=== PATIENT | female | born 1995 | race Caucasian/White ===

== ENCOUNTER 2018-04-29 09:54 | Emergency (ER) | payer OTHER ==
--- NOTE | 2018-04-29 09:58 | ED PDOC ---
Arrival/HPI - General Historian: Patient <Roz Terryim P - Last Filed: 04/29/18 12:04> <Ilir Lewis - Last Filed: 04/29/18 16:10> - General Time Seen by Provider: 04/29/18 09:58 - History of Present Illness Narrative History of Present Illness (Text): 04/29/18 09:58 This 23 yo female who denies pmh, presents to this ED c/o pelvic pain since morning. Patient admits similar pelvic pain associated with menstruation in the past. Patient stated her menstrual period started this morning. Patient denies sob, cp, n/v, urinary frequency (Terry,Nahim P) Past Medical History - Provider Review Nursing Documentation Reviewed: Yes <Terry,Nahim P - Last Filed: 04/29/18 12:04> Family/Social History - Physician Review Nursing Documentation Reviewed: Yes Family/Social History: Other <Terry,Nahim P - Last Filed: 04/29/18 12:04> Allergies/Home Meds <Terry,Nahim P - Last Filed: 04/29/18 12:04> <Ilir Lewis - Last Filed: 04/29/18 16:10> Allergies/Adverse Reactions: Allergies No Known Allergies Allergy (Verified 04/29/18 10:06) Review of Systems - Review of Systems Constitutional: Normal. absent: Fatigue, Weight Change, Fevers, Night Sweats Eyes: Normal ENT: Normal Respiratory: Normal Cardiovascular: Normal Gastrointestinal: Other (pelvic cramping) Genitourinary Female: Normal Musculoskeletal: Normal Skin: Normal Neurological: Normal Endocrine: Normal Hemo/Lymphatic: Normal Psychiatric: Normal <Terry,Nahim P - Last Filed: 04/29/18 12:04> Physical Exam Temperature: Afebrile Blood Pressure: Normal Pulse: Regular Respiratory Rate: Normal Appearance: Positive for: Well-Appearing, Non-Toxic, Comfortable Pain Distress: None Mental Status: Positive for: Alert and Oriented X 3 - Systems Exam Head: Present: Atraumatic, Normocephalic Pupils: Present: PERRL Extroacular Muscles: Present: EOMI Conjunctiva: Present: Normal Mouth: Present: Moist Mucous Membranes Neck: Present: Normal Range of Motion Respiratory/Chest: Present: Clear to Auscultation, Good Air Exchange. No: Respiratory Distress, Accessory Muscle Use Cardiovascular: Present: Regular Rate and Rhythm, Normal S1, S2. No: Murmurs Abdomen: No: Tenderness, Distention, Peritoneal Signs, Rebound, Guarding Back: Present: Normal Inspection. No: CVA Tenderness Upper Extremity: Present: Normal Inspection, Normal ROM, NORMAL PULSES. No: Cyanosis, Edema Lower Extremity: Present: Normal Inspection, NORMAL PULSES, Normal ROM. No: Edema Neurological: Present: GCS=15, CN II-XII Intact, Speech Normal, Motor Func Grossly Intact, Normal Sensory Function, Normal Cerebellar Funct, Gait Normal, Memory Normal Skin: Present: Warm, Dry, Normal Color. No: Rashes Psychiatric: Present: Alert, Oriented x 3, Normal Insight, Normal Concentration <Megan Terry P - Last Filed: 04/29/18 12:04> Vital Signs Temp Pulse Resp BP Pulse Ox 04/29/18 12:30 98.4 F 80 18 125/63 99 04/29/18 11:51 79 18 125/69 99 04/29/18 10:04 98.4 F 87 18 127/76 99 Medical Decision Making Re-evaluation Time: 12:05 Reassessment Condition: Re-examined, Improved - Lab Interpretations I have reviewed the lab results: Yes Interpretation: Abnormal lab values (cystitis) <Megan Terry - Last Filed: 04/29/18 12:04> <Ilir Lewis - Last Filed: 04/29/18 16:10> ED Course and Treatment: 04/29/18 12:05 Re-evaluation. Patient feels better. Discussed results and plan with patient who expresses understanding. All questions answered and there is agreement with the plan to discharge home with instructions. Patient stable for discharge. Return if symptoms persist or worsen. (Roz Terryim P) - Lab Interpretations Lab Results: 04/29/18 10:23 04/29/18 10:23 Lab Results 04/29/18 11:23: Urine Color Red, Urine Appearance Bloody, Urine pH 7.5, Ur Specific [place] 1.020, Urine Protein >=300 H, Urine Glucose (UA) 100 H, Urine Ketones Trace H, Urine Blood Large H, Urine Nitrate Positive H, Urine Bilirubin Small H, Urine Urobilinogen 1.0 H, Ur Leukocyte Esterase Small H, Urine RBC Tntc , Urine WBC TEST NOT PERFORMED, Urine HCG, Qual Negative 04/29/18 10:23: Sodium 143, Potassium 3.9, Chloride 105, Carbon Dioxide 25, Anion Gap 18, BUN 13, Creatinine 0.6 L, Est GFR ( Amer) > 60, Est GFR ( Non-Af Amer) > 60, Random Glucose 96, Calcium 9.2, Total Bilirubin 0.6, AST 26, ALT 23, Alkaline Phosphatase 46, Total Protein 8.4 H, Albumin 4.7, Globulin 3.6 , Albumin/Globulin Ratio 1.3 04/29/18 10:23: WBC 6.9, RBC 4.17, Hgb 12.8, Hct 38.1, MCV 91.4, MCH 30.7, MCHC 33.6, RDW 13.3, Plt Count 339, MPV 9.3, Gran % 66.8, Lymph % (Auto) 23.0, [place] % (Auto) 9.2 H, Eos % (Auto) 0.6 L, Baso % (Auto) 0.4, Gran # 4.58, Lymph # ( Auto) 1.6, [place] # (Auto) 0.6, Eos # (Auto) 0.0, Baso # (Auto) 0.03 - Medication Orders Current Medication Orders: Discontinued Medications Cephalexin Monohydrate (Keflex) 500 mg PO STAT STA PRN Reason: Protocol Stop: 04/29/18 12:04 Last Admin: 04/29/18 12:22 Dose: 500 mg Sodium Chloride (Sodium Chloride 0.9%) 1,000 mls @ 999 mls/hr IV .Q1H1M STA Stop: 04/29/18 11:20 Last Admin: 04/29/18 10:20 Dose: 999 mls/hr eMAR Start Stop Document 04/29/18 10:20 LA (Rec: 04/29/18 10:49 LAMAR [id number]) Intravenous Solution Start Date 04/29/18 Start Time 10:20 End Date 04/29/18 End time 11:21 Total Infusion Time 61 Ketorolac Tromethamine (Toradol) 30 mg IVP STAT STA Stop: 04/29/18 11:32 Last Admin: 04/29/18 11:42 Dose: 30 mg MAR Pain Assessment Document 04/29/18 11:42 LA (Rec: 04/29/18 11:43 LAMAR [id number]) Pain Reassessment Is this a pain reassessment? No Sleep Is patient sleeping during reassessment? No Presence of Pain Presence of Pain Yes Pain Scale Used Pain Scale Used Numeric Location Pain Location Body Site Abdomen Generalized Description Description Cramping Intensity of Pain at present 10 IVP Administration Document 04/29/18 11:42 LAMAR (Rec: 04/29/18 11:43 LA [id number]) Charges for Administration # of IVP Administrations 1 Phenazopyridine HCl (Pyridium) 200 mg PO STAT STA Stop: 04/29/18 12:04 Last Admin: 04/29/18 12:22 Dose: 200 mg - PA / JAVA USER INTERFACE DEVELOPER / Resident Statement / has reviewed & agrees with the documentation as recorded. <Ilir Lewis - Last Filed: 04/29/18 16:10> Disposition/Present on Arrival - Present on Arrival Any Indicators Present on Arrival: No History of DVT/PE: No History of Uncontrolled Diabetes: No Urinary Catheter: No History of Decub. Ulcer: No - Disposition Have Diagnosis and Disposition been Completed?: Yes Disposition Time: 12:06 Patient Plan: Discharge <Megan Terry - Last Filed: 04/29/18 12:04> <Ilir Lewis - Last Filed: 04/29/18 16:10> - Disposition Diagnosis: Acute cystitis Disposition: HOME/ ROUTINE Condition: GOOD Discharge Instructions (ExitCare): Acute Cystitis (DC) Additional Instructions: Call private doctor for follow up visit in 1-2 days. Take medication as instructed with food. Return to emergency if symptoms worsen. Prescriptions: Cephalexin [cephalexin] 500 mg PO BID #14 cap Famotidine [Pepcid] 40 mg PO DAILY #10 tablet Ibuprofen [Motrin] 400 mg PO Q8H PRN #20 tab PRN Reason: Pain, Severe (8-10) Phenazopyridine HCl [Pyridium] 200 mg PO TID #9 tablet Referrals: [facility] [Outside] - Follow up with primary [facility] [Outside] - Follow up with [facility] [Outside] - Follow up with primary Forms: WORK NOTE
[2018-04-29 10:06] VITALS: RESP 18; TEMP 98.4; O2SAT 99; BMI 17.5
[2018-04-29] MEDS ORDERED: Sodium Chloride 0.9% 1,000 ML IV STA (10:20)
[2018-04-29 10:42] LABS: BASO # 0.03 K/mm3 (0.0-2.0); BASO % 0.4 % (0.0-3.0); EOS % 0.6 % (1.5-5.0); GRAN # 4.58 (1.4-6.5); GRAN % 66.8 % (50.0-68.0); HEMOGLOBIN 12.8 g/dL (12.0-16.0); LYMPH # 1.6 (1.2-3.4); MEAN CELL VOLUME 91.4 fl (80.0-105.0); MEAN CORPUSCULAR HEMOGLOBIN 30.7 pg (25.0-35.0); MEAN CORPUSCULAR HGB CONC 33.6 g/dl (31.0-37.0); MEAN PLATELET VOLUME 9.3 fl (7.0-11.0); MONO # 0.6 (0.1-0.6); MONO % 9.2 % (1.0-6.0); RBC 4.17 10^6/uL (3.5-6.1); RED CELL DISTRIBUTION WIDTH 13.3 % (11.5-14.5); WHITE BLOOD COUNT 6.9 10^3/ul (4.5-11.0)
[2018-04-29 10:48] LABS: ALB/GLOB RATIO 1.3 (1.1-1.8); ALBUMIN 4.7 g/dL (3.0-4.8); ALT/SGPT 23 U/L (7-56); AST/SGOT 26 U/L (14-36); BLOOD UREA NITROGEN 13 mg/dL (7-21); CALCIUM 9.2 mg/dL (8.4-10.5); GFR AFRICAN-AMERICAN > 60; GFR NON-AFRICAN AMERICAN > 60
[2018-04-29 11:33] LABS: PH,URINE 7.5 (4.7-8.0); URINE BILIRUBIN SMALL (NEGATIVE); URINE BLOOD LARGE (NEGATIVE); URINE GLUCOSE (UA) 100 mg/dL (NEGATIVE); URINE LEUKOCYTE ESTERASE SMALL Leu/uL (NEGATIVE); URINE PROTEIN >=300 mg/dL (<30 mg/dL)
[2018-04-29 11:36] LABS: URINE APPEARANCE BLOODY (CLEAR); URINE COLOR RED (YELLOW)
[2018-04-29 11:53] LABS: URINE RBC TNTC /hpf (0-2)
[2018-04-29 11:54] LABS: HCG,QUALITATIVE URINE NEGATIVE (NEGATIVE)
[2018-04-29 12:32] VITALS: BP 125/63; PULSE 80
== END 2018-04-29 12:30 | disposition home or self-care (01) ==
LOC: ED 09:54
DX: N30.00 Acute cystitis without hematuria (principal)
CPT/HCPCS: 80053; 81001; 84703; 85025; 87086; 96361; 96374; 99284; J1885; J7030

== ENCOUNTER 2018-12-24 12:57 | Emergency (ER) | payer SELFPAY ==
[2018-12-24 12:58] VITALS: BMI 16.9
[2018-12-24 13:13] VITALS: RESP 18
--- NOTE | 2018-12-24 14:09 | ED PDOC ---
Arrival/HPI - General Chief Complaint: Abdominal Pain Time Seen by Provider: 12/24/18 13:17 Historian: Patient - History of Present Illness Narrative History of Present Illness (Text): 12/24/18 14:06 23 year old female, primarily Kyrgyz speaking translation through nurse, with no significant past medical history presents to the emergency department, 4 months , complaining of lower abdominal pain, since last night. Patient states she has been taking vitamins and had an ultrasound on 12/17/18 and has another scheduled for 12/30/18. She denies any vaginal bleeding, discharge, dysuria, denies fevers, chills, headache, dizziness, chest pain, shortness of breath, dyspnea on exertion, cough, nausea, vomiting, diarrhea, back pain, neck pain, or any other complaint. Time/Duration: 24 hours Symptom Onset: Gradual Symptom Course: Unchanged Activities at Onset: Light Context: Home Past Medical History - Provider Review Nursing Documentation Reviewed: Yes - Infectious Disease Hx of Infectious Diseases: None - Reproductive Currently : Yes - Psychiatric Hx Psychophysiologic Disorder: No Hx Substance Use: No - Anesthesia Hx Anesthesia: No - Suicidal Assessment Feels Threatened In Home Enviroment: No Family/Social History - Physician Review Nursing Documentation Reviewed: Yes Family/Social History: No Known Family HX Smoking Status: Never Smoked Hx Alcohol Use: No Hx Substance Use: No Allergies/Home Meds Allergies/Adverse Reactions: Allergies No Known Allergies Allergy (Verified 10/23/18 14:54) Home Medications: Home Meds Medication Instructions Recorded Confirmed Pnv#26/Iron Poly/FA/Dha 1 tab PO DAILY 12/24/18 12/24/18 [Vitafol-One Capsule] Review of Systems - Physician Review All systems were reviewed & negative as marked: Yes - Review of Systems Constitutional: absent: Fevers Respiratory: absent: SOB, Cough Cardiovascular: absent: Chest Pain Gastrointestinal: Abdominal Pain. absent: Diarrhea, Nausea, Vomiting Genitourinary Female: absent: Dysuria, Frequency, Hematuria, Vaginal Bleeding, Vaginal Discharge Musculoskeletal: absent: Back Pain, Neck Pain Neurological: absent: Headache, Dizziness Physical Exam Vital Signs Reviewed: Yes Vital Signs Temp Pulse Resp BP Pulse Ox 12/24/18 13:13 98.2 F 77 18 103/66 99 Temperature: Afebrile Blood Pressure: Normal Pulse: Regular Respiratory Rate: Normal Appearance: Positive for: Well-Appearing, Non-Toxic, Comfortable Pain Distress: None Mental Status: Positive for: Alert and Oriented X 3 - Systems Exam Head: Present: Atraumatic, Normocephalic Pupils: Present: PERRL Extroacular Muscles: Present: EOMI Conjunctiva: Present: Normal Mouth: Present: Moist Mucous Membranes Neck: Present: Normal Range of Motion Respiratory/Chest: Present: Clear to Auscultation, Good Air Exchange. No: Respiratory Distress, Accessory Muscle Use Cardiovascular: Present: Regular Rate and Rhythm, Normal S1, S2. No: Murmurs Abdomen: Present: Tenderness (diffuse tenderness to the lower abdomen), Normal Bowel Sounds, Other (gravid, soft). No: Distention, Peritoneal Signs, Rebound, Guarding Back: Present: Normal Inspection Upper Extremity: Present: Normal Inspection. No: Cyanosis, Edema Lower Extremity: Present: Normal Inspection. No: Edema Neurological: Present: GCS=15, CN II-XII Intact, Speech Normal Skin: Present: Warm, Dry, Normal Color. No: Rashes Psychiatric: Present: Alert, Oriented x 3, Normal Insight, Normal Concentration Medical Decision Making ED Course and Treatment: 12/24/18 14:12 Impression: 23 year old female who presents to the emergency department complaining of lower abdominal pain. Plan: -- Urine culture -- Urinalysis -- Uterus Ultrasound -- Reassess and disposition Prior Visits: Notes and results from previous visits were reviewed. Progress Notes: 12/24/18 15:29 Results of ua and ultrasound d/w pt. Pt to f/u w/ob on 12/30 as previously scheduled and RTED for new, worsening or concerning symptoms. 12/24/18 15:43 Ua reviewed, normal results, no infection. - Lab Interpretations I have reviewed the lab results: Yes - RAD Interpretation Narrative RAD Interpretations (Text): 12/24/18 15:41 Ultrasound reviewed by radiologist, shows: IMPRESSION: Single live intrauterine fetus in cephalic presentation with mean gestational age of 17 weeks and 2 days. The estimated date of delivery by ultrasound is 06/01/2019. The ultrasound dates correspond with the clinical dates. Please note this is a limited OB ultrasound performed on an emergent basis. Dedicated anatomic survey is recommended. Lead Supply Worker: Radiologist - Scribe Statement The provider has reviewed the documentation as recorded by the Scribe Taya Bebawy Provider Scribe Attestation: All medical record entries made by the Scribe were at my direction and personally dictated by me. I have reviewed the chart and agree that the record accurately reflects my personal performance of the history, physical exam, medical decision making, and the department course for this patient. I have also personally directed, reviewed, and agree with the discharge instructions and disposition. Disposition/Present on Arrival - Present on Arrival Any Indicators Present on Arrival: No History of DVT/PE: No History of Uncontrolled Diabetes: No Urinary Catheter: No History of Decub. Ulcer: No History Surgical Site Infection Following: None - Disposition Have Diagnosis and Disposition been Completed?: Yes Diagnosis: Round ligament pain, Abdominal pain in Disposition: HOME/ ROUTINE Disposition Time: 15:31 Patient Plan: Discharge Condition: STABLE Discharge Instructions (ExitCare): Round Ligament Pain, Stomach Pain in Early Print Language: UGANDAN Additional Instructions: ANCA GOODWIN, thank you for letting us take care of you today. Your provider was Jessica Hale MD and you were treated for /ABD PAIN. The emergency medical care you received today was directed at your acute symptoms. If you were prescribed any medication, please fill it and take as directed. It may take several days for your symptoms to resolve. Return to the Emergency Department if your symptoms worsen, do not improve, or if you have any other problems. Please go to your doctor on December 30 as previously scheduled. Bring any pap erwork you were given at discharge with you along with any medications you are taking to your follow up visit. Our treatment cannot replace ongoing medical care by a primary care provider outside of the emergency department. Thank you for allowing the [facility] team to be part of your care today. Forms: [email or web address] (Slovak)
[2018-12-24 14:38] LABS: PH,URINE 7.5 (4.7-8.0); URINE APPEARANCE CLEAR (CLEAR); URINE BILIRUBIN NEGATIVE (NEGATIVE); URINE BLOOD NEGATIVE (NEGATIVE); URINE COLOR YELLOW (YELLOW); URINE GLUCOSE (UA) NEGATIVE (NEGATIVE); URINE LEUKOCYTE ESTERASE NEGATIVE Leu/uL (NEGATIVE); URINE PROTEIN NEGATIVE mg/dL (<30 mg/dL); URINE UROBILINOGEN 0.2 E.U./dL (<1 E.U./dL)
--- NOTE | 2018-12-24 15:26 | US ---
Date of service: 12/24/2018 PROCEDURE: OB Pelvic Ultrasound HISTORY: Abdominal pain COMPARISON: None available. FINDINGS: UTERUS: Single Live intrauterine fetus in cephalic presentation. BPD: 3.70 cm corresponding to 7 weeks and 2 days of gestational age. HC: 13.84 cm corresponding to 17 weeks and 2 days of gestational age. AC: 11.46 cm corresponding to 17 weeks and 2 days of gestational age. FL: 2.42 cm corresponding to 17 weeks and 2 days of gestational age. age: 17 weeks and 2 days of gestational age. Date of delivery (Ultrasound estimated) : 06/01/2019 Heart rate: 151 bpm. Yvonne-gestational hemorrhage: None. CERVIX: Long and closed. No cervical abnormality seen. RIGHT OVARY: Not visualized. LEFT OVARY: Measures 2.6 x 3.7 x 2.5 cm. No mass. Normal flow. FREE FLUID: None. OTHER FINDINGS: None. IMPRESSION: Single live intrauterine fetus in cephalic presentation with mean gestational age of 17 weeks and 2 days. The estimated date of delivery by ultrasound is 06/01/2019. The ultrasound dates correspond with the clinical dates. Please note this is a limited OB ultrasound performed on an emergent basis. Dedicated anatomic survey is recommended.
[2018-12-24 15:37] VITALS: BP 105/69; PULSE 68; TEMP 98; O2SAT 100
== END 2018-12-24 15:46 | disposition home or self-care (01) ==
LOC: ED 12:57
DX: O26.892 Other specified pregnancy related conditions, second trimester (principal); R10.2 Pelvic and perineal pain; Z3A.17 17 weeks gestation of pregnancy

== ENCOUNTER 2019-01-29 16:24 | Emergency (ER) | payer MEDICAID ==
[2019-01-29 16:48] VITALS: BMI 18.7
[2019-01-29 16:55] VITALS: RESP 18; TEMP 98.2; O2SAT 100
[2019-01-29] MEDS ORDERED: Sodium Chloride 0.9% 1,000 ML IV STA (16:55)
--- NOTE | 2019-01-29 17:31 | ED PDOC ---
Arrival/HPI - General Chief Complaint: Abdominal Pain Time Seen by Provider: 01/29/19 16:27 Historian: Patient - History of Present Illness Narrative History of Present Illness (Text): 01/29/19 17:02 23 y/o A0 5-month female presents to the ED c/o lower abdominal pain s/p fall 4 hours ago. Pt was mopping the floor at work when she fell to the ground on her back. Pt did not fall on her stomach. No headstrike or LOC. Since that time, pt has been having lower abdominal pain without any vaginal bleeding. Last seen here on 12/24 for lower abdominal pain, diagnosed with round ligament pain and discharged home after normal ultrasound. Denies fevers, chills, nausea, vomiting, vaginal bleeding, urinary symptoms, back pain, headache, dizziness, vision changes, or any other associated symptoms. Past Medical History - Provider Review Nursing Documentation Reviewed: Yes - Infectious Disease Hx of Infectious Diseases: None - Psychiatric Hx Psychophysiologic Disorder: No Hx Substance Use: No - Anesthesia Hx Anesthesia: No - Suicidal Assessment Feels Threatened In Home Enviroment: No Family/Social History - Physician Review Nursing Documentation Reviewed: Yes Family/Social History: No Known Family HX Smoking Status: Never Smoked Hx Alcohol Use: No Hx Substance Use: No Allergies/Home Meds Allergies/Adverse Reactions: Allergies No Known Allergies Allergy (Verified 01/29/19 16:48) Home Medications: Home Meds Medication Instructions Recorded Confirmed Pnv#26/Iron Poly/FA/Dha 1 tab PO DAILY 12/24/18 01/29/19 [Vitafol-One Capsule] Review of Systems - Review of Systems Constitutional: Normal. absent: Fatigue, Fevers Eyes: Normal ENT: Normal. absent: Sore Throat, Sinus Congestion Respiratory: Normal. absent: SOB, Cough Cardiovascular: Normal. absent: Chest Pain, Palpitations Gastrointestinal: Abdominal Pain Genitourinary Female: Normal. absent: Dysuria, Frequency, Vaginal Bleeding Musculoskeletal: Normal. absent: Arthralgias, Back Pain, Neck Pain Skin: Normal. absent: Rash Neurological: Normal. absent: Headache, Dizziness Endocrine: Normal Hemo/Lymphatic: Normal Psychiatric: Normal Physical Exam Vital Signs Reviewed: Yes Vital Signs Temp Pulse Resp BP Pulse Ox 01/29/19 16:49 98.2 F 84 18 109/49 L 100 Temperature: Afebrile Blood Pressure: Hypotensive Pulse: Regular Respiratory Rate: Normal Appearance: Positive for: Well-Appearing, Non-Toxic, Comfortable Pain Distress: None Mental Status: Positive for: Alert and Oriented X 3 - Systems Exam Head: Present: Atraumatic, Normocephalic Pupils: Present: PERRL Extroacular Muscles: Present: EOMI Conjunctiva: Present: Normal Mouth: Present: Moist Mucous Membranes Neck: Present: Normal Range of Motion. No: Meningeal Signs, MIDLINE TENDERNESS, Paraspinal Tenderness Respiratory/Chest: Present: Clear to Auscultation, Good Air Exchange. No: Respiratory Distress, Accessory Muscle Use Cardiovascular: Present: Regular Rate and Rhythm, Normal S1, S2. No: Murmurs Abdomen: Present: Tenderness (generalized lower abdominal tenderness), Normal Bowel Sounds, Other (visibily ). No: Distention, Peritoneal Signs, Rebound, Guarding Genitourinary/Pelvic Exam: Present: Normal External Genitalia, Cervical os Closed. No: Vaginal Discharge, Vaginal Bleeding, Vaginal Lesions, Adenexal Tenderness, Adenexal Mass, Cervical Motion Tendernes Back: Present: Normal Inspection. No: CVA Tenderness, Midline Tenderness, Paraspinal Tenderness Upper Extremity: Present: Normal Inspection, Normal ROM, NORMAL PULSES, Neurovascularly Intact, Capillary Refill < 2s. No: Cyanosis, Edema, Tenderness, Swelling Lower Extremity: Present: Normal Inspection, NORMAL PULSES, Normal ROM, Neurovascularly Intact, Capillary Refill < 2 s. No: Edema, Temperature Abnormalties Neurological: Present: GCS=15, CN II-XII Intact, Speech Normal, Motor Func Grossly Intact, Normal Sensory Function, Gait Normal Skin: Present: Warm, Dry, Normal Color. No: Rashes Psychiatric: Present: Alert, Oriented x 3, Normal Insight, Normal Concentration, Normal Affect, Normal Mood Medical Decision Making ED Course and Treatment: 01/29/19 17:40 Initial Plan: * CBC, CMP * beta hcg quant * UA, culture * IVF * Pelvic Ultrasound * Reassess and Disposition Bloodwork reviewed, unremarkable. UA with leuk esterase, will treat with Keflex. Ultrasound shows live IUP with heartbeat. No hemorrhage. Spoke with Dr. Chavez, OB fermentation engineer who recommends discharge home, as is nonviable at 21 weeks. Advises OB followup and bedrest. Case discussed with ED attending Dr. Kingsley who agrees with disposition. Patient reports complete resolution of symptoms, requesting discharge home. Advised OB and PMD followup. Diagnostic testing results and plan of care discussed with patient. Strict instructions given regarding prescription use, importance of followup, and signs/symptoms to return to ER including abdominal pain, vaginal bleeding, or any other new/worsening symptoms. Pt verbalized understanding of discussion. Patient is A&Ox3, ambulating with steady gait, with vital signs stable for discharge. - Lab Interpretations Lab Results: 01/29/19 18:50 01/29/19 18:50 Lab Results 01/29/19 18:50: Beta HCG, Quant [id number] H 01/29/19 18:50: Sodium 138, Potassium 3.7, Chloride 104, Carbon Dioxide 24, Anion Gap 13, BUN 5 L, Creatinine 0.4 L, Est GFR ( Amer) > 60, Est GFR (Non-Af Amer) > 60, Random Glucose 68 L, Calcium 9.6, Total Bilirubin 0.2, AST 28, ALT 13, Alkaline Phosphatase 46, Total Protein 8.0, Albumin 4.3, Globulin 3.7, Albumin/Globulin Ratio 1.2 01/29/19 18:50: WBC 7.2, RBC 3.35 L, Hgb 11.0 L, Hct 32.7 L, MCV 97.6 D, MCH 32.8, MCHC 33.6, RDW 13.3, Plt Count 318, MPV 9.1, Neut % (Auto) 67.9, Lymph % (Auto) 24.5, [place] % (Auto) 7.2 H, Eos % (Auto) 0.1 L, Baso % (Auto) 0.3, Lymph # (Auto) 1.8, [place] # (Auto) 0.5, Eos # (Auto) 0.0, Baso # (Auto) 0.02, Absolute Neuts (auto) 4.88 01/29/19 18:50: Urine Color Light yellow, Urine Appearance Clear, Urine pH 6.5, Ur Specific [place] 1.020, Urine Protein Negative, Urine Glucose (UA) Negative, Urine Ketones >=80, Urine Blood Negative, Urine Nitrate Negative, Urine Bilirubin Negative, Urine Urobilinogen 0.2, Ur Leukocyte Esterase Trace H, Urine RBC 0 - 2, Urine WBC 0 - 2, Ur Epithelial Cells 6 - 8 H I have reviewed the lab results: Yes - RAD Interpretation Narrative RAD Interpretations (Text): 01/29/19 18:44 Pelvic OB Ultrasound: FINDINGS: UTERUS: Single Live intrauterine gestation. BPD: 5.11 cm equivalent to 21 weeks and 3 days of gestational age. HC: 19.65 cm equivalent to 21 weeks and 6 days of gestational age. AC: 17.53 cm equivalent to 22 weeks and 3 days of gestational age. FL: 3.69 cm equivalent to 21 weeks and 5 days of gestational age. age (Ultrasound estimated): 21 weeks and 5 days Date of delivery (Ultrasound estimated) : 06/05/2019 Heart rate: 134 bpm. Yvonne-gestational hemorrhage: None. Placenta is posterior. CERVIX: Long and closed. No cervical abnormality seen. RIGHT OVARY: Not visualized. LEFT OVARY: Not visualized. FREE FLUID: None. OTHER FINDINGS: None. IMPRESSION: Single live intrauterine fetus in transverse presentation with mean gestational age of 21 weeks and 5 days. The estimated date of delivery by ultrasound is 06/05/2019. The ultrasound dates correspond with the clinical dates. Please note this is a limited OB ultrasound performed on an emergent basis. Dedicated anatomic survey is advised. Radiology Orders: 01/29/19 16:53 TRANSVAGINAL [US] Stat - Medication Orders Current Medication Orders: Sodium Chloride (Sodium Chloride 0.9%) 1,000 mls @ 999 mls/hr IV .Q1H1M STA Stop: 01/29/19 17:55 Disposition/Present on Arrival - Present on Arrival Any Indicators Present on Arrival: No History of DVT/PE: No History of Uncontrolled Diabetes: No Urinary Catheter: No History of Decub. Ulcer: No History Surgical Site Infection Following: None - Disposition Have Diagnosis and Disposition been Completed?: Yes Diagnosis: Fall, Disposition: HOME/ ROUTINE Disposition Time: 20:00 Condition: IMPROVED Discharge Instructions (ExitCare): Urinary Tract Infections in Adults, - The Fifth Month Additional Instructions: Aumentar los fluidos Keflex cada 12 horas abdiaziz 7 brown Seguimiento con OB segn lo programado Regrese a la jose de emergencias con cualquier sntoma nuevo o que empeore Prescriptions: Cephalexin [Keflex] 500 mg PO BID 7 Days #14 capsule Referrals: Adrian Chavez MD [Staff Provider] - Follow up with primary Forms: [employer] (Romanian), WORK NOTE
--- NOTE | 2019-01-29 18:46 | US ---
Date of service: 01/29/2019 PROCEDURE: OB Pelvic Ultrasound HISTORY: OB, 5 months , abd pain after fall COMPARISON: None available. FINDINGS: UTERUS: Single Live intrauterine gestation. BPD: 5.11 cm equivalent to 21 weeks and 3 days of gestational age. HC: 19.65 cm equivalent to 21 weeks and 6 days of gestational age. AC: 17.53 cm equivalent to 22 weeks and 3 days of gestational age. FL: 3.69 cm equivalent to 21 weeks and 5 days of gestational age. age (Ultrasound estimated): 21 weeks and 5 days Date of delivery (Ultrasound estimated) : 06/05/2019 Heart rate: 134 bpm. Yvonne-gestational hemorrhage: None. Placenta is posterior. CERVIX: Long and closed. No cervical abnormality seen. RIGHT OVARY: Not visualized. LEFT OVARY: Not visualized. FREE FLUID: None. OTHER FINDINGS: None. IMPRESSION: Single live intrauterine fetus in transverse presentation with mean gestational age of 21 weeks and 5 days. The estimated date of delivery by ultrasound is 06/05/2019. The ultrasound dates correspond with the clinical dates. Please note this is a limited OB ultrasound performed on an emergent basis. Dedicated anatomic survey is advised.
[2019-01-29 18:59] LABS: BASO # 0.02 K/mm3 (0.0-2.0); BASO % 0.3 % (0.0-3.0); EOS % 0.1 % (1.5-5.0); LYMPH # 1.8 (1.2-3.4); LYMPH % 24.5 % (22.0-35.0); MEAN CELL VOLUME 97.6 fl (80.0-105.0); MEAN CORPUSCULAR HEMOGLOBIN 32.8 pg (25.0-35.0); MEAN CORPUSCULAR HGB CONC 33.6 g/dl (31.0-37.0); MEAN PLATELET VOLUME 9.1 fl (7.0-11.0); MONO # 0.5 (0.1-0.6); MONO % 7.2 % (1.0-6.0); PH,URINE 6.5 (4.7-8.0); RBC 3.35 10^6/uL (3.5-6.1); RED CELL DISTRIBUTION WIDTH 13.3 % (11.5-14.5); URINE BILIRUBIN NEGATIVE (NEGATIVE); URINE BLOOD NEGATIVE (NEGATIVE); URINE GLUCOSE (UA) NEGATIVE (NEGATIVE); URINE LEUKOCYTE ESTERASE TRACE Leu/uL (NEGATIVE); URINE PROTEIN NEGATIVE mg/dL (<30 mg/dL); URINE UROBILINOGEN 0.2 E.U./dL (<1 E.U./dL); WHITE BLOOD COUNT 7.2 10^3/uL (4.5-11.0)
[2019-01-29 19:00] LABS: URINE APPEARANCE CLEAR (CLEAR); URINE COLOR LIGHT YELLOW (YELLOW)
[2019-01-29 19:10] LABS: ALB/GLOB RATIO 1.2 (1.1-1.8); ALBUMIN 4.3 g/dL (3.0-4.8); ALT/SGPT 13 U/L (7-56); AST/SGOT 28 U/L (14-36); BLOOD UREA NITROGEN 5 mg/dL (7-21); CALCIUM 9.6 mg/dL (8.4-10.5); GFR NON-AFRICAN AMERICAN > 60; URINE RBC 0 - 2 /hpf (0-2); URINE WBC 0 - 2 /hpf (0-6)
[2019-01-29 19:41] VITALS: BP 99/67; PULSE 89
== END 2019-01-29 20:22 | disposition home or self-care (01) ==
LOC: ED 16:24
DX: O26.892 Other specified pregnancy related conditions, second trimester (principal); R10.30 Lower abdominal pain, unspecified; Z3A.21 21 weeks gestation of pregnancy
CPT/HCPCS: 76815; 80053; 81001; 84702; 85025; 87086; 96360; 99283; J7030

== ENCOUNTER 2019-02-13 14:48 | Emergency (ER) | payer MEDICAID ==
[2019-02-13 14:48] VITALS: BMI 18.7
[2019-02-13 15:22] VITALS: RESP 18; TEMP 98.4
--- NOTE | 2019-02-13 15:55 | ED PDOC ---
Arrival/HPI - General Chief Complaint: Dizziness/Lightheaded Time Seen by Provider: 02/13/19 15:13 Historian: Patient - History of Present Illness Narrative History of Present Illness (Text): 02/13/19 15:30 23 year old female, whose past medical history includes low blood sugar, presents to the emergency department complaining of worsening dizziness for the past 2 weeks. Patient reports the dizziness would come and go lasting 30-60 minutes. Patient is 5 months , but has not seen her PMD or OBGYN about these symptoms. Patient reports her next OBGYN appointment is 03/04. Patient is otherwise eating and drinking normally. Patient reports right breast discomfort, but denies headache, visual changes, neck pain, near syncope, syncope, fever, chills, eye pain, chest pain, shortness of breath, abdominal pain, nausea, v omiting, diarrhea, urinary symptoms, back pain, vaginal bleeding, vaginal discharge or any other complaints. Time/Duration: Other (2 weeks) Symptom Onset: Gradual Symptom Course: Unchanged Activities at Onset: Light Context: Home Past Medical History - Provider Review Nursing Documentation Reviewed: Yes - Infectious Disease Hx of Infectious Diseases: None - Psychiatric Hx Psychophysiologic Disorder: No Hx Substance Use: No - Anesthesia Hx Anesthesia: No - Suicidal Assessment Feels Threatened In Home Enviroment: No Family/Social History - Physician Review Nursing Documentation Reviewed: Yes Family/Social History: No Known Family HX Smoking Status: Never Smoked Hx Alcohol Use: No Hx Substance Use: No Allergies/Home Meds Allergies/Adverse Reactions: Allergies No Known Allergies Allergy (Verified 01/29/19 16:48) Home Medications: Home Meds Medication Instructions Recorded Confirmed Pnv#26/Iron Poly/FA/Dha 1 tab PO DAILY 12/24/18 02/13/19 [Vitafol-One Capsule] Review of Systems - Physician Review All systems were reviewed & negative as marked: Yes - Review of Systems Constitutional: absent: Fevers, Other (chills) Eyes: absent: Eye Pain Respiratory: absent: SOB Cardiovascular: absent: Chest Pain Gastrointestinal: absent: Abdominal Pain, Diarrhea, Nausea, Vomiting Genitourinary Female: absent: Dysuria, Frequency, Hematuria Musculoskeletal: Other (breast discomfort). absent: Back Pain, Neck Pain Neurological: Dizziness. absent: Headache Physical Exam Vital Signs Reviewed: Yes Vital Signs Temp Pulse Resp BP Pulse Ox 02/13/19 15:22 98.4 F 84 18 107/65 100 Temperature: Afebrile Blood Pressure: Normal Pulse: Regular Respiratory Rate: Normal Appearance: Positive for: Well-Appearing, Non-Toxic, Comfortable Pain Distress: None Mental Status: Positive for: Alert and Oriented X 3 - Systems Exam Head: Present: Atraumatic, Normocephalic Pupils: Present: PERRL Extroacular Muscles: Present: EOMI. No: Other (no nystagmus) Conjunctiva: Present: Normal Mouth: Present: Moist Mucous Membranes Neck: Present: Normal Range of Motion Respiratory/Chest: Present: Clear to Auscultation, Good Air Exchange. No: Respiratory Distress, Accessory Muscle Use Cardiovascular: Present: Regular Rate and Rhythm, Normal S1, S2. No: Murmurs Abdomen: Present: Normal Bowel Sounds, Other (soft, gravid). No: Tenderness, Distention Back: Present: Normal Inspection. No: CVA Tenderness Upper Extremity: Present: Normal Inspection. No: Cyanosis, Edema Lower Extremity: Present: Normal Inspection. No: Edema Neurological: Present: GCS=15, Speech Normal, Normal Sensory Function, Normal Cerebellar Funct, Gait Normal, Other (no nystagmus) Skin: Present: Warm, Dry, Normal Color. No: Rashes Psychiatric: Present: Alert, Oriented x 3, Normal Insight, Normal Concentration Medical Decision Making ED Course and Treatment: 02/13/19 15:35 Impression: 23 year old female presents complaining of worsening dizziness for the past 2 weeks and breast discomfort. Plan: --POC glucose -- Orthostatic Vital Signs --UA -- Reassess and disposition Prior Visits: Notes and results from previous visits were reviewed. Progress Notes: 02/13/19 16:35 Orthostatic negative. Patient was not dizzy when orthostatics were done. POC glucose 109. UA pending. 02/13/19 17:29 UA negative for infection, has 250 glucose, results d/w patient. Explained to patient she needs to f/u w/OB in 1-2 days. Patient verbalized understanding. - Scribe Statement The provider has reviewed the documentation as recorded by the Scribe Marlys Ashley All medical record entries made by the Scribe were at my direction and personally dictated by me. I have reviewed the chart and agree that the record accurately reflects my personal performance of the history, physical exam, medical decision making, and the department course for this patient. I have also personally directed, reviewed, and agree with the discharge instructions and disposition Disposition/Present on Arrival - Present on Arrival Any Indicators Present on Arrival: No History of DVT/PE: No History of Uncontrolled Diabetes: No Urinary Catheter: No History of Decub. Ulcer: No History Surgical Site Infection Following: None - Disposition Have Diagnosis and Disposition been Completed?: Yes Diagnosis: Dizziness, Glucosuria with normal serum glucose Disposition: HOME/ ROUTINE Disposition Time: 17:29 Patient Plan: Discharge Condition: GOOD Discharge Instructions (ExitCare): Dizziness, Nonvertigo, (DC) Referrals: Yocasta Chan CNM [Primary Care Provider] - Follow up with primary Forms: [employer] (Georgian)
[2019-02-13 17:12] LABS: PH,URINE 6.5 (4.7-8.0); URINE BILIRUBIN NEGATIVE (NEGATIVE); URINE BLOOD NEGATIVE (NEGATIVE); URINE GLUCOSE (UA) 250 mg/dL (NEGATIVE); URINE LEUKOCYTE ESTERASE NEGATIVE Leu/uL (NEGATIVE); URINE PROTEIN NEGATIVE mg/dL (<30 mg/dL); URINE UROBILINOGEN 0.2 E.U./dL (<1 E.U./dL)
[2019-02-13 17:15] LABS: URINE APPEARANCE CLEAR (CLEAR); URINE COLOR YELLOW (YELLOW)
[2019-02-13 18:07] VITALS: BP 102/63; PULSE 82; O2SAT 98
== END 2019-02-13 18:07 | disposition home or self-care (01) ==
LOC: ED 14:48
DX: R42 Dizziness and giddiness (principal); R81 Glycosuria

== ENCOUNTER 2019-02-25 20:34 | Emergency (ER) | payer MEDICAID ==
[2019-02-25 20:40] VITALS: BMI 18.5
[2019-02-25 20:43] VITALS: BP 117/69; PULSE 78; RESP 18; TEMP 98.2; O2SAT 100
--- NOTE | 2019-02-25 20:58 | ED PDOC ---
Arrival/HPI - General Chief Complaint: Anxiety Time Seen by Provider: 02/25/19 20:40 Historian: Patient, Family, Gas Scrubber Operator (Gas Scrubber Operator: #[id number]) - History of Present Illness Narrative History of Present Illness (Text): 02/25/19 20:58 23 year old Czech-speaking female, A0, with no significant past medical history, presents to the emergency department accompanied by family complaining of abdominal discomfort that began this afternoon. Patient reports she is 24 weeks , Patient reports her next OBGYN appointment is 03/04. Patient also reports very little baby movement today. She reports she was anxious about the pain, so decided to come in for evaluation. Patient denies any fall or trauma. Patient denies any fever, chills, chest pain, shortness of breath, nausea, vomiting, diarrhea, urinary symptoms, back pain, neck pain, headache, dizziness, or any other complaints. Gas Scrubber Operator: #[id number] 02/26/19 01:25 Time/Duration: Other (this afternoon) Symptom Onset: Gradual Symptom Course: Unchanged Activities at Onset: Light Context: Home Past Medical History - Provider Review Nursing Documentation Reviewed: Yes - Infectious Disease Hx of Infectious Diseases: None - Psychiatric Hx Psychophysiologic Disorder: No Hx Substance Use: No - Anesthesia Hx Anesthesia: No - Suicidal Assessment Feels Threatened In Home Enviroment: No Family/Social History - Physician Review Nursing Documentation Reviewed: Yes Family/Social History: No Known Family HX Smoking Status: Never Smoked Hx Alcohol Use: No Hx Substance Use: No Allergies/Home Meds Allergies/Adverse Reactions: Allergies No Known Allergies Allergy (Verified 02/25/19 20:40) Home Medications: Home Meds Medication Instructions Recorded Confirmed Pnv#26/Iron Poly/FA/Dha 1 tab PO DAILY 12/24/18 02/25/19 [Vitafol-One Capsule] Review of Systems - Physician Review All systems were reviewed & negative as marked: Yes - Review of Systems Constitutional: absent: Fevers, Other (chills) Respiratory: absent: SOB Cardiovascular: absent: Chest Pain Gastrointestinal: Abdominal Pain. absent: Diarrhea, Nausea, Vomiting Genitourinary Female: absent: Dysuria, Frequency, Hematuria Musculoskeletal: absent: Back Pain, Neck Pain Neurological: absent: Headache, Dizziness Physical Exam Vital Signs Reviewed: Yes Vital Signs Temp Pulse Resp BP Pulse Ox 02/25/19 20:43 98.2 F 78 18 117/69 100 Temperature: Afebrile Blood Pressure: Normal Pulse: Regular Respiratory Rate: Normal Appearance: Positive for: Well-Appearing, Non-Toxic, Comfortable Pain Distress: None Mental Status: Positive for: Alert and Oriented X 3 - Systems Exam Head: Present: Atraumatic, Normocephalic Pupils: Present: PERRL Extroacular Muscles: Present: EOMI Conjunctiva: Present: Normal Mouth: Present: Moist Mucous Membranes Neck: Present: Normal Range of Motion Respiratory/Chest: Present: Clear to Auscultation, Good Air Exchange. No: Respiratory Distress, Accessory Muscle Use Cardiovascular: Present: Regular Rate and Rhythm, Normal S1, S2. No: Murmurs Abdomen: Present: Other (Gravid). No: Tenderness, Distention, Peritoneal Signs Back: Present: Normal Inspection Upper Extremity: Present: Normal Inspection. No: Cyanosis, Edema Lower Extremity: Present: Normal Inspection. No: Edema Neurological: Present: GCS=15, CN II-XII Intact, Speech Normal Skin: Present: Warm, Dry, Normal Color. No: Rashes Psychiatric: Present: Alert, Oriented x 3, Normal Insight, Normal Concentration Medical Decision Making ED Course and Treatment: 02/25/19 20:57 Impression: 23 year old female presents complaining of abdominal discomfort that began this afternoon. Patient is 24 weeks . Plan: -- Tylenol -- Reassess and disposition Prior Visits: Notes and results from previous visits were reviewed. Progress Notes: 02/25/19 21:[address] Borja security monitor OB who agrees with the plan of ER to OB transfer. Upon notifying patient of plan, patient refused to wait for ambulance and wants to sign out against medical advice. Leaving Against Medical Advice (AMA): The patient is choosing to leave against medical advice. I have personally explained to the patient that choosing to do so may result in permanent bodily harm, disability, or . I have discussed at great length that without further evaluation and monitoring there may be unforeseen circumstances and/or deterioration causing permanent bodily harm or as a result of their choice. The patient is alert, oriented, and shows the mental capacity to make clear decisions regarding the patients health care at this time. The patient continues to wish to leave against medical advice. In light of the patients decision to leave against medical advice, follow-up has been arranged and the patient is aware of the importance to following up as instructed. The patient has been advised that they should return to the e mergency room immediately if they change their mind at any time, or if their condition begins to change or worsen in any way. 02/26/19 01:25 - RAD Interpretation Radiology Orders: 02/25/19 20:55 AGE [US] Stat - Scribe Statement The provider has reviewed the documentation as recorded by the Bibibspencer Ashley Provider Scribe Attestation: All medical record entries made by the Scribe were at my direction and personally dictated by me. I have reviewed the chart and agree that the record accurately reflects my personal performance of the history, physical exam, medical decision making, and the department course for this patient. I have also personally directed, reviewed, and agree with the discharge instructions and disposition. Disposition/Present on Arrival - Present on Arrival Any Indicators Present on Arrival: No History of DVT/PE: No History of Uncontrolled Diabetes: No Urinary Catheter: No History of Decub. Ulcer: No History Surgical Site Infection Following: None - Disposition Have Diagnosis and Disposition been Completed?: Yes Diagnosis: Abdominal pain, Threatened miscarriage, Left against medical advice Disposition: AGAINST MEDICAL ADVICE Disposition Time: 20:00 Condition: UNKNOWN Discharge Instructions (ExitCare): Threatened Miscarriage, Acute Abdomen (Belly Pain), Adult (DC), Leaving Against Medical Advice Print Language: MALTESE Additional Instructions: return to er with worsening symptoms or concerns. Forms: [employer] (Macanese)
== END 2019-02-25 21:18 | disposition left against medical advice (07) ==
LOC: ED 20:34
DX: O20.0 Threatened abortion (principal); Z3A.24 24 weeks gestation of pregnancy

== ENCOUNTER 2019-02-27 12:08 | Emergency (ER) | payer MEDICAID ==
[2019-02-27 12:08] VITALS: BMI 18.5
[2019-02-27] MEDS ORDERED: Sodium Chloride 0.9% 1,000 ML IV STA (12:12)
[2019-02-27 12:17] VITALS: TEMP 97.9; O2SAT 100
--- NOTE | 2019-02-27 12:25 | ED PDOC ---
Arrival/HPI - General Chief Complaint: Syncope Historian: Patient, EMS - History of Present Illness Narrative History of Present Illness (Text): 02/27/19 12:21 A 23 year old female, whose past medical history includes hypoglycemia, is brought into the emergency department via EMS s/p syncopal episode at [facility] where she works. Patient is 6 months . The patient recalls that prior to syncopizing she felt hot and a room-spinning sensation. Patient is taking pre- jasen vitamins. Patient reports her next OBGYN appointment is 03/04. She denies fevers, chills, headache, chest pain, shortness of breath, dyspnea on exertion, cough, abdominal pain, nausea, vomiting, diarrhea, back pain, neck pain, urinary/bowel changes, or any other complaint. PMD: Dr. Lul Ya Time/Duration: Prior to Arrival Symptom Onset: Sudden Symptom Course: Improving Activities at Onset: Rest, Light Context: Work Past Medical History - Provider Review Nursing Documentation Reviewed: Yes - Infectious Disease Hx of Infectious Diseases: None - Psychiatric Hx Psychophysiologic Disorder: No Hx Substance Use: No - Anesthesia Hx Anesthesia: No - Suicidal Assessment Feels Threatened In Home Enviroment: No Family/Social History - Physician Review Nursing Documentation Reviewed: Yes Family/Social History: No Known Family HX Smoking Status: Never Smoked Hx Alcohol Use: No Hx Substance Use: No Allergies/Home Meds Allergies/Adverse Reactions: Allergies No Known Allergies Allergy (Verified 02/25/19 20:40) Home Medications: Home Meds Medication Instructions Recorded Confirmed Pnv#26/Iron Poly/FA/Dha 1 tab PO DAILY 12/24/18 02/25/19 [Vitafol-One Capsule] Review of Systems - Physician Review All systems were reviewed & negative as marked: Yes - Review of Systems Constitutional: absent: Fevers Respiratory: absent: SOB, Cough Cardiovascular: Syncope. absent: Chest Pain, PATINO Gastrointestinal: absent: Abdominal Pain, Stool Changes, Diarrhea, Nausea, Vomiting Genitourinary Female: absent: Urine Output Changes Musculoskeletal: absent: Back Pain, Neck Pain Neurological: Dizziness. absent: Headache Physical Exam Vital Signs Reviewed: Yes Vital Signs Temp Pulse Resp BP Pulse Ox 02/27/19 12:15 97.9 F 93 H 16 100/55 L 100 Temperature: Afebrile Blood Pressure: Hypotensive Pulse: Tachycardic Respiratory Rate: Normal Appearance: Positive for: Well-Appearing, Non-Toxic, Comfortable Pain Distress: None Mental Status: Positive for: Alert and Oriented X 3 Finger Stick Blood Glucose: 103 - Systems Exam Head: Present: Atraumatic, Normocephalic Pupils: Present: PERRL Extroacular Muscles: Present: EOMI Conjunctiva: Present: Normal Mouth: Present: Moist Mucous Membranes Neck: Present: Normal Range of Motion Respiratory/Chest: Present: Clear to Auscultation, Good Air Exchange. No: Respiratory Distress, Accessory Muscle Use Cardiovascular: Present: Regular Rate and Rhythm, Normal S1, S2. No: Murmurs Abdomen: Present: Other (Gravid). No: Tenderness, Distention, Peritoneal Signs Back: Present: Normal Inspection Upper Extremity: Present: Normal Inspection. No: Cyanosis, Edema Lower Extremity: Present: Normal Inspection. No: Edema Neurological: Present: GCS=15, CN II-XII Intact, Speech Normal Skin: Present: Warm, Dry, Normal Color. No: Rashes Psychiatric: Present: Alert, Oriented x 3, Normal Insight, Normal Concentration Medical Decision Making ED Course and Treatment: 02/27/19 12:26 Impression: A 23 year old female is brought into the emergency department via EMS s/p syncopal episode at her job. Differential Diagnosis included but are not limited to: -- Vasovagal syncope -- Orthostatic hypotension Plan: -- EKG -- Urinalysis -- Labs -- IV Fluids -- Reassess and disposition Prior Visits: Notes and results from previous visits were reviewed. Patient was last seen in the emergency department on 02/13/2019. The patient was seen in the emergency department for 2 week duration worsening dizziness. She was also seen on 02/25/19 for abdominal pain. Progress Notes: 02/27/19 13:46 Labs reviewed with no acute electrolyte abnormalities. UA shows protein with no evidence of bacteria or esterases/nitrites. HR 90s. Orthostatics reviewed and unremarkable. Hgb noted to be 9.7 with patient recalling history of anemia and is urged to follow up with her braille translator. She is stable for discharge. - Lab Interpretations I have reviewed the lab results: Yes - EKG Interpretation EKG Interpretation (Text): 02/27/19 12:28: EKG shows NSR at [address] elevations. No T- wave inversions. Interpreted by ED Physician: Yes Type: 12 lead EKG - Medication Orders Current Medication Orders: Sodium Chloride (Sodium Chloride 0.9%) 1,000 mls @ 999 mls/hr IV .Q1H1M STA Stop: 02/27/19 13:12 - Scribe Statement The provider has reviewed the documentation as recorded by the Scribe Luz Crain Provider Scribe Attestation: All medical record entries made by the Scribe were at my direction and personally dictated by me. I have reviewed the chart and agree that the record accurately reflects my personal performance of the history, physical exam, medical decision making, and the department course for this patient. I have also personally directed, reviewed, and agree with the discharge instructions and disposition. Disposition/Present on Arrival - Present on Arrival Any Indicators Present on Arrival: No History of DVT/PE: No History of Uncontrolled Diabetes: No Urinary Catheter: No History of Decub. Ulcer: No History Surgical Site Infection Following: None - Disposition Have Diagnosis and Disposition been Completed?: Yes Diagnosis: Vasovagal syncope, Anemia Disposition: HOME/ ROUTINE Disposition Time: 13:50 Patient Plan: Discharge Condition: IMPROVED Discharge Instructions (ExitCare): Syncope (ED), Anemia Caused by Low Iron, Adult (DC) Print Language: CHINESE Referrals: Mohsen Tamayo MD [Medical Doctor] - Follow up with primary Forms: [employer] ([place]er), WORK NOTE
[2019-02-27 12:56] LABS: BASO # 0.02 K/mm3 (0.0-2.0); BASO % 0.4 % (0.0-3.0); EOS # 0.1 (0.0-0.7); HEMOGLOBIN 9.7 g/dL (12.0-16.0); LYMPH # 1.2 (1.2-3.4); LYMPH % 23.9 % (22.0-35.0); MEAN CELL VOLUME 99.7 fl (80.0-105.0); MEAN CORPUSCULAR HEMOGLOBIN 32.4 pg (25.0-35.0); MEAN CORPUSCULAR HGB CONC 32.6 g/dl (31.0-37.0); MEAN PLATELET VOLUME 9.8 fl (7.0-11.0); MONO # 0.5 (0.1-0.6); MONO % 9.5 % (1.0-6.0); RBC 2.99 10^6/uL (3.5-6.1); WHITE BLOOD COUNT 5.2 10^3/uL (4.5-11.0)
[2019-02-27 13:00] LABS: INR 1.18; PARTIAL THROMBOPLASTIN TIME 26.1 Seconds (26.9-38.3); PROTHROMBIN TIME 13.3 SECONDS (9.4-12.5)
[2019-02-27 13:03] LABS: ALB/GLOB RATIO 1.1 (1.1-1.8); ALBUMIN 3.6 g/dL (3.0-4.8); ALT/SGPT 16 U/L (7-56); AST/SGOT 25 U/L (14-36); BLOOD UREA NITROGEN 10 mg/dL (7-21); CALCIUM 8.8 mg/dL (8.4-10.5); GFR NON-AFRICAN AMERICAN > 60
[2019-02-27 13:20] LABS: URINE BILIRUBIN NEGATIVE (NEGATIVE); URINE BLOOD NEGATIVE (NEGATIVE); URINE GLUCOSE (UA) NEGATIVE (NEGATIVE); URINE LEUKOCYTE ESTERASE NEGATIVE Leu/uL (NEGATIVE); URINE PROTEIN TRACE mg/dL (<30 mg/dL)
[2019-02-27 13:23] LABS: HCG,QUALITATIVE URINE POSITIVE (NEGATIVE); URINE APPEARANCE SL CLOUDY (CLEAR); URINE COLOR YELLOW (YELLOW)
[2019-02-27 13:31] LABS: URINE BACTERIA FEW /hpf; URINE WBC 0 - 2 /hpf (0-6)
[2019-02-27 13:52] VITALS: BP 104/51; PULSE 85; RESP 18
--- NOTE | 2019-02-28 03:11 | CARD ---
APPROVED REPORT Date of service: 02/27/2019 EKG Measurement Heart [id number] IN [id number] <Conclusion> Normal sinus rhythm Normal ECG
== END 2019-02-27 14:07 | disposition home or self-care (01) ==
LOC: ED 12:08
DX: R55 Syncope and collapse (principal); D64.9 Anemia, unspecified
CPT/HCPCS: 80053; 81001; 81025; 82948; 83735; 84703; 85025; 85610; 85730; 93005; 99285; J7030

== ENCOUNTER 2019-04-09 13:01 | Emergency (ER) | payer MEDICAID ==
[2019-04-09 13:01] VITALS: BMI 18.5
[2019-04-09] MEDS ORDERED: Sodium Chloride 0.9% 1,000 ML IV STA (13:50)
--- NOTE | 2019-04-09 13:59 | ED PDOC ---
Arrival/HPI - General Chief Complaint: Fever Time Seen by Provider: 04/09/19 13:02 Historian: Patient - History of Present Illness Narrative History of Present Illness (Text): 04/10/19 00:34 24 year old 8 month female with no significant past medical history presents to the emergency department complaining of sinus congestion body aches headaches and sore throat x 2 days. Associated dry cough. Patient has not taken any medication for symptoms. Patient is following up with ob regularly and taking vitamins daily for her . Patient is due to deliver in May. Denies vaginal bleeding, back pain, abdominal pain, nausea, vomiting, diarrhea, constipation, urinary symptoms, vision changes, dizziness, pal pitations, syncope, SOB, chest pain, or any other associated symptoms. Past Medical History - Provider Review Nursing Documentation Reviewed: Yes - Infectious Disease Hx of Infectious Diseases: None - Psychiatric Hx Psychophysiologic Disorder: No Hx Substance Use: No - Anesthesia Hx Anesthesia: No - Suicidal Assessment Feels Threatened In Home Enviroment: No Family/Social History - Physician Review Nursing Documentation Reviewed: Yes Family/Social History: No Known Family HX Smoking Status: Never Smoked Hx Alcohol Use: No Hx Substance Use: No Allergies/Home Meds Allergies/Adverse Reactions: Allergies No Known Allergies Allergy (Verified 02/25/19 20:40) Home Medications: Home Meds Medication Instructions Recorded Confirmed Pnv#26/Iron Poly/FA/Dha 1 tab PO DAILY 12/24/18 02/25/19 [Vitafol-One Capsule] Review of Systems - Review of Systems Constitutional: Fevers Eyes: Normal. absent: Vision Changes ENT: Sore Throat, Sinus Congestion Respiratory: Cough. absent: SOB, Sputum Cardiovascular: Normal. absent: Chest Pain Gastrointestinal: Normal. absent: Abdominal Pain, Stool Changes, Nausea, Vo miting, Appetite Changes Genitourinary Female: Normal. absent: Dysuria, Frequency, Vaginal Bleeding, Vaginal Discharge Musculoskeletal: Normal. absent: Arthralgias, Back Pain Skin: Normal. absent: Rash Neurological: Headache. absent: Dizziness, Focal Weakness Physical Exam Vital Signs Temp Pulse Resp BP Pulse Ox 04/09/19 13:40 99.1 F 85 19 95/67 L 98 Temperature: Afebrile Blood Pressure: Hypotensive Pulse: Regular Respiratory Rate: Normal Appearance: Positive for: Well-Appearing, Non-Toxic, Comfortable Pain Distress: None Mental Status: Positive for: Alert and Oriented X 3 - Systems Exam Head: Present: Atraumatic, Normocephalic Pupils: Present: PERRL Extroacular Muscles: Present: EOMI Conjunctiva: Present: Normal Mouth: Present: Moist Mucous Membranes Neck: Present: Normal Range of Motion. No: Meningeal Signs Respiratory/Chest: Present: Clear to Auscultation, Good Air Exchange. No: Respiratory Distress, Accessory Muscle Use Cardiovascular: Present: Regular Rate and Rhythm, Normal S1, S2, Peripheal Pulses Present Abdomen: Present: Normal Bowel Sounds, Other (gravid). No: Tenderness, Distention, Peritoneal Signs Back: Present: Normal Inspection. No: CVA Tenderness Upper Extremity: Present: Normal Inspection, Normal ROM. No: Cyanosis, Edema Lower Extremity: Present: Normal Inspection, Normal ROM. No: Edema Neurological: Present: GCS=15, CN II-XII Intact, Speech Normal, Motor Func Grossly Intact, Normal Sensory Function, Gait Normal Skin: Present: Warm, Dry, Normal Color. No: Rashes Lymphatic: No: Cervical Adenopathy Psychiatric: Present: Alert, Oriented x 3, Normal Insight, Normal Concentration, Normal Affect, Normal Mood Medical Decision Making ED Course and Treatment: Initial Plan: * FHT * Labs * UA * Rapid strep, flu * IVF * Tylenol On initial exam, pt is well appearing, mildly hypotensive otherwise with stable vitals. Lungs are CTA. Abdomen is gravid, nontender. Pt denies vaginal bleeding. Rapid strep and flu negative Bloodwork reviewed, shows mild anemia, otherwise unremarkable. No leukocytosis. UA shows bacteria, will treat with keflex Vitals have improved with IVF FHT wnl Diagnostic testing results and plan of care discussed with patient. Strict instructions given regarding prescription use, importance of followup, and signs/symptoms to return to ER including abdominal pain, vaginal bleeding, vomiting, chest pain, or any other new/worsening symptoms. Pt verbalized understanding of discussion. Patient is A&Ox3, ambulating with steady gait, with vital signs stable for discharge. Encounter translated using engraver service - Lab Interpretations Lab Results: 04/09/19 13:54 04/09/19 13:54 Lab Results 04/09/19 13:54: Sodium 138, Potassium 4.0, Chloride 106, Carbon Dioxide 21, Anion Gap 15, BUN 3 L, Creatinine 0.5 L, Est GFR ( Amer) > 60, Est GFR (Non-Af Amer) > 60, Random Glucose 69 L, Calcium 9.3, Total Bilirubin 0.5, AST 3 2, ALT 22, Alkaline Phosphatase 106, Total Protein 8.1, Albumin 4.1, Globulin 4.0, Albumin/Globulin Ratio 1.0 L 04/09/19 13:54: WBC 7.3 D, RBC 3.61, Hgb 11.6 L, Hct 35.9 L, MCV 99.4, MCH 32.1, MCHC 32.3, RDW 12.5, Plt Count 315, MPV 10.0, Neut % (Auto) 77.7 H, Lymph % (Auto) 12.0 L, [place] % (Auto) 9.6 H, Eos % (Auto) 0.4 L, Baso % (Auto) 0.3, Lymph # (Auto) 0.9 L, [place] # (Auto) 0.7 H, Eos # (Auto) 0.0, Baso # (Auto) 0.02, Absolute Neuts (auto) 5.65 04/09/19 13:54: Urine Color Yellow, Urine Appearance Clear, Urine pH 7.0, Ur Specific [place] 1.010, Urine Protein Trace H, Urine Glucose (UA) Negative, Urine Ketones >=80, Urine Blood Negative, Urine Nitrate Negative, Urine Bilirubin Negative, Urine Urobilinogen 1.0 H, Ur Leukocyte Esterase Negative, Urine RBC 0 - 2, Urine WBC 1 - 3, Ur Epithelial Cells 6 - 8 H, Urine Bacteria Many, Coarse Granular Casts Trace, Urine Other Uyeast 04/09/19 13:54: Influenza Typ A,B (EIA) Negative for flu a/b, Grp A Beta Strep Ag Negative I have reviewed the lab results: Yes - Medication Orders Current Medication Orders: Sodium Chloride (Sodium Chloride 0.9%) 1,000 mls @ 999 mls/hr IV .Q1H1M STA Stop: 04/09/19 14:50 Discontinued Medications Acetaminophen (Tylenol 325mg Tab) 650 mg PO STAT STA Stop: 04/09/19 13:50 Disposition/Present on Arrival - Present on Arrival Any Indicators Present on Arrival: No History of DVT/PE: No History of Uncontrolled Diabetes: No Urinary Catheter: No History of Decub. Ulcer: No History Surgical Site Infection Following: None - Disposition Have Diagnosis and Disposition been Completed?: Yes Diagnosis: Upper respiratory infection, Asymptomatic bacteriuria Disposition: HOME/ ROUTINE Disposition Time: 15:00 Patient Plan: Discharge Condition: IMPROVED Discharge Instructions (ExitCare): Viral Upper Respiratory Infection, Adult (DC), Asymptomatic Bacteriuria Print Language: BURKIN[place] Additional Instructions: keflex cada 12 horas abdiaziz 7 brown aumentar los fluidos tylenol segn sea necesario para el dolor de chele, cada 4 horas Seguimiento con gineclogo dentro de 2 brown. Seguimiento con mdico primario en 2 brown. volver a la jose de emergencias con cualquier sntoma nuevo / que empeora Prescriptions: Cephalexin [Keflex] 500 mg PO BID 7 Days #14 capsule Forms: Live [employer]amer (French), WORK NOTE
[2019-04-09 14:30] LABS: BASO # 0.02 K/mm3 (0.0-2.0); BASO % 0.3 % (0.0-3.0); EOS % 0.4 % (1.5-5.0); HEMOGLOBIN 11.6 g/dL (12.0-16.0); LYMPH # 0.9 (1.2-3.4); MEAN CELL VOLUME 99.4 fl (80.0-105.0); MEAN CORPUSCULAR HEMOGLOBIN 32.1 pg (25.0-35.0); MEAN CORPUSCULAR HGB CONC 32.3 g/dl (31.0-37.0); MONO # 0.7 (0.1-0.6); MONO % 9.6 % (1.0-6.0); RBC 3.61 10^6/uL (3.5-6.1); RED CELL DISTRIBUTION WIDTH 12.5 % (11.5-14.5); URINE BILIRUBIN NEGATIVE (NEGATIVE); URINE BLOOD NEGATIVE (NEGATIVE); URINE GLUCOSE (UA) NEGATIVE (NEGATIVE); URINE LEUKOCYTE ESTERASE NEGATIVE Leu/uL (NEGATIVE); URINE PROTEIN TRACE mg/dL (<30 mg/dL); WHITE BLOOD COUNT 7.3 10^3/uL (4.5-11.0)
[2019-04-09 14:33] LABS: ALBUMIN 4.1 g/dL (3.0-4.8); ALT/SGPT 22 U/L (7-56); AST/SGOT 32 U/L (14-36); BLOOD UREA NITROGEN 3 mg/dL (7-21); CALCIUM 9.3 mg/dL (8.4-10.5); GFR NON-AFRICAN AMERICAN > 60; URINE APPEARANCE CLEAR (CLEAR); URINE COLOR YELLOW (YELLOW)
[2019-04-09 14:37] LABS: INFLUENZA A B NEGATIVE FOR FLU A/B (NEGATIVE)
[2019-04-09 14:40] LABS: URINE BACTERIA MANY /hpf; URINE RBC 0 - 2 /hpf (0-2)
[2019-04-09 14:41] LABS: URINE COARSE GRANULAR CAST TRACE /hpf
[2019-04-09 16:03] VITALS: BP 109/68; PULSE 96; RESP 18; O2SAT 97
[2019-04-09 17:43] VITALS: TEMP 98.1
== END 2019-04-09 17:43 | disposition home or self-care (01) ==
LOC: ED 13:01
DX: J06.9 Acute upper respiratory infection, unspecified (principal); R82.71 Bacteriuria
CPT/HCPCS: 80053; 81001; 81025; 85025; 87070; 87430; 87804; 96360; 99284; J7030